=== PATIENT | female | born 1980 | race Two or more races ===

== ENCOUNTER 2021-05-21 12:10 | Outpatient (REF) | payer OTHER, SELFPAY ==
[2021-05-21 15:52] LABS: Binax Internal Control QC Valid; Binax Lot number: 9864; Binax Now Covid-19 Ag Negative (Negative)
== END 2021-05-21 12:11 | disposition home or self-care (01) ==
LOC: HO.LAB 12:10
PROVIDERS: Visit Provider Internal Medicine
DX: Z20.822 Contact with and (suspected) exposure to COVID-19 (principal)
CPT/HCPCS: 36415

== ENCOUNTER 2022-02-13 18:54 | Observation (INO) | payer OTHER, SELFPAY ==
--- NOTE | ~2022-02-13 | CT_ITS ---
EXAMINATION: CT ABDOMEN AND PELVIS WITH CONTRAST CLINICAL INFORMATION: Abdominal pain. Concern for appendicitis. COMPARISON: None TECHNIQUE: Multidetector volumetric images were obtained from the superior aspect of the liver through the pubic symphysis following administration 85 mL of Omnipaque 350 intravenous contrast. Sagittal and coronal reformatted images were obtained on the technologist's workstation. Oral contrast: No This CT examination was performed using dose optimization techniques as appropriate, variously including the following: *Automated exposure control *Adjustment of mA and/or kV according to patient size (this includes techniques or standardized protocols for targeted exams where dose is matched to indication/reason for exam; i.e. extremities or head) *Use of iterative reconstruction technique DLP: 634 mGy-cm FINDINGS: LUNG BASES: The visualized lung bases are unremarkable. LIVER, GALLBLADDER, AND BILIARY TREE: The liver is normal in size, shape, and attenuation. No focal hepatic lesion or biliary ductal dilatation is present. The gallbladder is unremarkable with no evidence of radiopaque gallstones, gallbladder wall thickening, or obvious pericholecystic inflammatory changes. PANCREAS: Unremarkable. SPLEEN: Unremarkable. ADRENAL GLANDS: Unremarkable. KIDNEYS AND URETERS: The kidneys are normal in size, shape, and attenuation. No hydronephrosis, hydroureter, or calculi seen. No perinephric stranding. BLADDER: Unremarkable. GASTROINTESTINAL TRACT: The appendix is normal in caliber measuring 7 mm. There is however subtle edema adjacent to the appendix in the right lower quadrant mesentery. Findings nonspecific but a mild appendicitis cannot be excluded. No abscess. Large bowel and small bowel loops in the stomach are normal. ABDOMINAL WALL: No significant hernia is appreciated. LYMPH NODES: Normal. VASCULAR: Unremarkable. PELVIC VISCERA: Uterus is anteverted. 1.3 cm enhancing myometrial nodule anterior uterus consistent with a small fibroid. No adnexal abnormality. OSSEOUS STRUCTURES: Disc phenomenon L4-L5 disc height narrowing. CT/CT abdomen pelvis w IV con IMPRESSION: The appendix is 7 mm in thickness with subtle edema noted. Appendiceal fat. Findings equivocal for appendicitis. Fleischner guidelines were followed.
[2022-02-13 18:56] VITALS: BP 142/98; PULSE 92; RESP 18; TEMP 36.8; O2SAT 97; BMI 32.9
[2022-02-13 20:27] LABS: MANUAL DIFF FLAG NO
[2022-02-13 20:28] LABS: Basophils Absolute Auto 0.1 X10*3/uL (0.0-0.2); Basophils Percent Auto 1.3 % (0-2); Eosinophils Absolute Auto 0.4 X10*3/uL (0.0-0.4); Eosinophils Percent Auto 4.1 % (0-4); Hematocrit 36.7 % (37.0-47.0); Hemoglobin 11.3 g/dl (12.0-16.0); Imm Gran Abs Auto 0.02 X10*3/uL (0.00-0.03); Imm Gran Pct Auto 0.2 % (0.0-0.4); Lymphocytes Absolute Auto 2.9 X10*3/uL (1.2-4.9); Lymphocytes Percent Auto 30.3 % (20-40); Mean Corpuscular HGB Conc 30.8 g/dl (31.0-35.0); Mean Corpuscular Hemoglobin 25.8 pg (27.0-33.0); Mean Corpuscular Volume 83.8 fL (80.0-98.0); Mean Platelet Volume 9.9 fL (9.4-12.3); Monocytes Absolute Auto 0.6 X10*3/uL (0.1-1.2); Monocytes Percent Auto 5.9 % (2-11); Neutrophils Absolute Auto 5.6 x10*3/uL (2.0-8.3); Neutrophils Percent Auto 58.2 % (45-73); Platelet Count 414 X10*3/uL (160-400); Red Blood Count 4.38 X10*6/uL (4.20-5.50); Red Cell Distribution Width 14.9 % (11.0-16.0); White Blood Count 9.6 X10*3/uL (4.8-10.8)
[2022-02-13 20:47] LABS: Alanine Aminotransferase 15 U/L (0-31); Albumin Level 4.6 g/dL (3.5-5.0); Alkaline Phosphatase 119 U/L (39-117); Anion Gap 16 (12-20); Aspartate Amino Transferase 16 U/L (5-31); Bilirubin Direct < 0.2 mg/dL (0.0-0.5); Bilirubin Total 0.2 mg/dL (0.0-1.0); Blood Urea Nitrogen 12 mg/dL (9-16); Carbon Dioxide 22 mmol/L (22-29); Chloride 105 mmol/L (96-108); Creatinine Clr Calc Pharmacy 96.7; Estimated Glomerular Filt Rate > 60; Glucose Random 95 mg/dL (60-115); Lipase 35 U/L (8-78); Potassium 4.1 mmol/L (3.3-5.1); Sodium 139 mmol/L (135-145); Total Protein 7.9 g/dL (6.5-8.0)
[2022-02-13 20:50] LABS: HCG Quantitative < 2 mIU/mL
--- NOTE | 2022-02-13 22:17 | ED_ITS ---
HPI - Abdominal Pain General Chief Complaint: Abdominal Pain Stated Complaint: appendix pain Time Seen by Provider: 02/13/22 19:25 Source: patient Mode of arrival: ambulatory Limitations: no limitations History of Present Illness HPI narrative: patient comes to the emergency room complaining periumbilical, epigastric and right lower quadrant pain. Patient complaining of nausea vomiting and diarrhea. Patient states that she was seen at [facility] couple of days ago, she was told that she had appendicitis. Patient left against medical advice. Related Data Allergies Allergy/AdvReac Type Severity Reaction Status Date / Time No Known Allergies Allergy Verified 02/13/22 19:01 Review of Systems Review of Systems Constitutional : No Weight loss, No Fever, No Chills, No Night Sweats, No Fatigue, No Malaise ENT/Mouth : No Hearing loss, No Ear Pain, No Nasal Congestion, No Sinus Pain, No Hoarseness, No sore throat, No Rhinorrhea, No Swallowing Difficulty Eyes: No Eye Pain, No Swelling, No Redness, No Foreign Body, No Discharge, No Vision Changes Cardiovascular : No Chest Pain, No SOB, No Dyspnea on Exertion, No Orthopnea, No Edema, No Palpitations Respiratory : No Cough, No Sputum, No Wheezing, No Smoke Exposure, No Dyspnea Gastrointestinal : Complaining of nausea vomiting and diarrhea, and complaining of epigastric and right lower quadrant pain, states that she was diagnosed with appendicitis 2 days ago Genitourinary : no irregular bleeding, No Dysuria, No Urinary Frequency, No Hematuria, No Urinary Incontinence, No Urgency, No Flank Pain, No Urinary Flow Changes, No Hesitancy Musculoskeletal : No joint pain, No Myalgias, No Joint Swelling Skin : No Skin Lesions, No rash Neuro : No Weakness, No Numbness, No Paresthesias, No Loss of Consciousness, No Dizziness, No Headache Psych : No Anxiety/Panic, No Depression, No SI/HI/AH/VH, No Social Issues, Heme/Lymph: No Bruising, No Bleeding,No Lymphadenopathy Endocrine : No Polyuria, No Polydipsia, No Temperature Intolerance PMFSH Social History Social History Advance Directives: No Advance Directives Information Provided: Yes Physical Exam ED Vital Signs: Vital Signs - 24 hr 02/13/22 18:56 02/13/22 22:37 02/13/22 23:39 Temperature 98.3 F 98.5 F 98.4 F Pulse Rate 92 68 69 Respiratory Rate 18 16 16 Blood Pressure 142/98 H 135/79 144/90 H Pulse Oximetry 97 98 98 Oxygen Delivery Method Room Air Room Air Room Air BMI result Body Mass Index 32.9 Const Other: Appearance: Alert. Oriented X3. No acute distress. well-appearing Eyes: Pupils equal, round and reactive to light. ENT: Pharynx normal. Neck: Normal inspection. Neck supple. No lymph nodes noted. No crepitus CVS: Normal heart rate and rhythm. Pulses normal. Normal S1 and S2 Respiratory: No respiratory distress. Breath sounds normal. No Wheezing. No rales Abdomen: Soft , does not seem to be significantly tender, no rebound, no guar ding , no peritoneal signs Skin: Skin warm and dry. Normal skin color. Normal skin turgor. Extremities: No lower extremity edema. No Lacerations. No Rash Neuro: Oriented X 3. No motor deficit. No sensory deficit. Moving all extremities. No slurred speech. CN 2 through 12 grossly intact Psych: calm, cooperative, normal affect Course Course Course Narrative: on physical exam, patient does not seem to have appendicitis. abdominal physical exam seems fairly benign. Patient has not requested any pain medications. Patient is well-appearing and is hungry I requested records from [facility], labs show a normal white blood cell count. CT scan pending. We received records from [facility]. Patient was seen on February 11: Seems the patient has had intermittent abdominal pain in appendix issues for several months. According to [facility] records, with the review of the EMR she was seen 08/31/2021 diagnosed with acute appendicitis seen on CT scan. However during admission her pain had completely resolved and she was advised to continue antibiotics for 1 week and was discharged home with advice to follow up in the office . Per records since the patient did not follow-up with surgery. Today, white blood cell count within normal limits. I discussed the CT findings, labs and previous records from [facility] with Dr. Tang. At this time, recommendations are to keep patient NPO. Dr. Tang will evaluate the patient in the morning at 07:00. The patient will remain in the ED under physician observation which was started at 00:45 no antibiotics are needed at this time per Dr. Tang. The diagnosis of appendicitis is questionable. Patient seems to be feeling fairly well, walking around the ED, asking if she can eat. Discussed with the patient that she will stay NPO until tomorrow, agrees with plan. MDM - Abdominal Pain Lab Data Result diagrams: 02/13/22 20:23 02/13/22 20:23 Labs: Lab Results 02/13/22 02/13/22 Range/Units 20:23 20:23 WBC 9.6 (4.8-10.8) X10*3/uL RBC 4.38 (4.20-5.50) X10*6/uL Hgb 11.3 L (12.0-16.0) g/dl Hct 36.7 L (37.0-47.0) % MCV 83.8 (80.0-98.0) fL MCH 25.8 L (27.0-33.0) pg MCHC 30.8 L (31.0-35.0) g/dl RDW 14.9 (11.0-16.0) % Plt Count 414 H (160-400) X10*3/uL MPV 9.9 (9.4-12.3) fL Immature Gran % (Auto) 0.2 (0.0-0.4) % Neut % (Auto) 58.2 (45-73) % Lymph % (Auto) 30.3 (20-40) % [place] % (Auto) 5.9 (2-11) % Eos % (Auto) 4.1 H (0-4) % Baso % (Auto) 1.3 (0-2) % Lymph # (Auto) 2.9 (1.2-4.9) X10*3/uL [place] # (Auto) 0.6 (0.1-1.2) X10*3/uL Eos # (Auto) 0.4 (0.0-0.4) X10*3/uL Baso # (Auto) 0.1 (0.0-0.2) X10*3/uL Abs Immat Gran (auto) 0.02 (0.00-0.03) X10*3/uL Absolute Neuts (auto) 5.6 (2.0-8.3) x10*3/uL Absolute Nucleated RBC 0.000 (0.0-0.012) X10*3/uL Nucleated RBC % (auto) 0.0 (0.0-0.2) /100WBC Sodium 139 (135-145) mmol/L Potassium 4.1 (3.3-5.1) mmol/L Chloride 105 (96-108) mmol/L Carbon Dioxide 22 (22-29) mmol/L Anion Gap 16 (12-20) BUN 12 (9-16) mg/dL Creatinine 0.75 (0.5-1.4) mg/dL Estim Creat Clear Calc 96.7 Estimated GFR > 60 Random Glucose 95 (60-115) mg/dL Calcium 11.0 H (8.4-10.2) mg/dL Total Bilirubin 0.2 (0.0-1.0) mg/dL Direct Bilirubin < 0.2 (0.0-0.5) mg/dL AST 16 (5-31) U/L ALT 15 (0-31) U/L Alkaline Phosphatase 119 H (39-117) U/L Total Protein 7.9 (6.5-8.0) g/dL Albumin 4.6 (3.5-5.0) g/dL Lipase 35 (8-78) U/L Beta HCG, Quant < 2 mIU/mL Imaging Data CT scan - abdomen: Radiologist's impression: FINDINGS: LUNG BASES: The visualized lung bases are unremarkable.? LIVER, GALLBLADDER, AND BILIARY TREE: The liver is normal in size, shape, and attenuation. No focal hepatic lesion or biliary ductal dilatation is present. The gallbladder is unremarkable with no evidence of radiopaque gallstones, gallbladder wall thickening, or obvious pericholecystic inflammatory changes.? PANCREAS: Unremarkable.? SPLEEN: Unremarkable.? ADRENAL GLANDS: Unremarkable.? KIDNEYS AND URETERS: The kidneys are normal in size, shape, and attenuation. No hydronephrosis, hydroureter, or calculi seen. No perinephric stranding. ? BLADDER: Unremarkable.? GASTROINTESTINAL TRACT: The appendix is normal in caliber measuring 7 mm. There is however subtle edema adjacent to the appendix in the right lower quadrant mesentery. Findings nonspecific but a mild appendicitis cannot be excluded. No abscess. Large bowel and small bowel loops in the stomach are normal.? ABDOMINAL WALL: No significant hernia is appreciated.? LYMPH NODES: Normal. VASCULAR: Unremarkable. PELVIC VISCERA: Uterus is anteverted. 1.3 cm enhancing myometrial nodule anterior uterus consistent with a small fibroid. No adnexal abnormality. OSSEOUS STRUCTURES: Disc phenomenon L4-L5 disc height narrowing.? CT/CT abdomen pelvis w IV con IMPRESSION: The appendix is 7 mm in thickness with subtle edema noted. Appendiceal fat. Findings equivocal for appendicitis. ? Fleischner guidelines were followed. Critical Care Time Critical Care Time Critical Care Time: Yes Total Critical Care Time: 30 Attestation: I have personally provided critical care time. Time includes review of lab data, radiology results, discussion with consultants, and monitoring for potential decompensation. Intervention performed as documented. Discharge Plan Discharge Clinical Impression: Acute appendicitis Patient Disposition: Still a Patient
[2022-02-13 22:37] VITALS: BP 135/79; PULSE 68; RESP 16; TEMP 36.9; O2SAT 98
[2022-02-13] MEDS: iohexoL 350 MG/ML 100 ML INFUS..BTL IV (23:03)
[2022-02-13 23:39] VITALS: BP 144/90; PULSE 69; RESP 16; TEMP 36.9; O2SAT 98
--- NOTE | 2022-02-14 00:48 | PC.NURSE ---
RN to bedside to provide pt with updates regarding NPO status and request for food. Pt aware of recent CT imaging and results that would require staff to follow up with surgery. RN provided education to the pt regarding her diagnosis and next steps. Pt verbalized understanding and is aware of plan for NPO status as of Midnight pending surgery consult. Pt reports continued pain to the RLQ 4/10 without N/V noted. Pt remains awake, alert, skin pwd, respirations even and unlabored without distress noted. The pt has call hill in reach and RN will continue to monitor.
[2022-02-14 01:41] VITALS: BP 124/72; PULSE 68; RESP 16; TEMP 37; O2SAT 98
--- NOTE | 2022-02-14 07:21 | P.PNGS_ITS ---
Subjective Subjective Date of Service: 02/19/22 Interval history: 41-year-old female who came to the ER because of right lower quadrant pain. A CT scan which some mild changes in the pending suggestive of acute appendicitis. She was actually in [facility] last February 11 for a si milar problem of right lower quadrant pain. She had signed out AMA at that time. The CAT scan showed findings also tip of early appendicitis . She had another CT scan last August for similar right lower quadrant pain in again this had tested acute appendicitis well. She seems to have had this low intensity pain on and off since that time. She denies any fever or chills. She does not have leukocytosis. Physical Exam Vital Signs: Vital Signs: Last Vital Signs Temp 98.6 F 02/14/22 01:41 Pulse 68 02/14/22 01:41 Resp 16 02/14/22 01:41 BP 124/72 02/14/22 01:41 Pulse Ox 98 02/14/22 01:41 O2 Del Method 02/14/22 01:41 BMI result Body Mass Index 32.9 Const: General: comfortable and no acute distress Orientation/con sciousness: patient oriented x3 Neck: Neck: Yes no lymphadenopathy Resp: Auscultation: clear to auscultation bilaterally Cardio: Rhythm: regular rhythm GI: Other: Very mild lower quadrant tenderness on deep palpation no guarding or rebound Palpation (GI): Soft to palpation, nontender and no guarding Neuro: General: patient oriented x3 Objective Data Active Medications Pharmacy Consult (Consult Rx Perform Med Rec) 1 each MISCELLANE ONCE PRN PRN Reason: Consult order Labs CBC & Chem 7: 02/13/22 20:23 02/13/22 20:23 Labs: Laboratory Results - last 24 hr 02/13/22 02/13/22 20:23 20:23 MCV 83.8 MCH 25.8 L MCHC 30.8 L RDW 14.9 Plt Count 414 H MPV 9.9 Immature Gran % (Auto) 0.2 Neut % (Auto) 58.2 Lymph % (Auto) 30.3 [place] % (Auto) 5.9 Eos % (Auto) 4.1 H Baso % (Auto) 1.3 Lymph # (Auto) 2.9 [place] # (Auto) 0.6 Eos # (Auto) 0.4 Baso # (Auto) 0.1 Abs Immat Gran (auto) 0.02 Absolute Neuts (auto) 5.6 Absolute Nucleated RBC 0.000 Nucleated RBC % (auto) 0.0 Anion Gap 16 Estim Creat Clear Calc 96.7 Estimated GFR > 60 Random Glucose 95 Calcium 11.0 H Total Bilirubin 0.2 Direct Bilirubin < 0.2 AST 16 ALT 15 Alkaline Phosphatase 119 H Total Protein 7.9 Albumin 4.6 Lipase 35 Beta HCG, Quant < 2 ABG Interpretation: Laboratory Results WBC 9.6 X10*3/uL (4.8-10.8) 02/13/22 20: RBC 4.38 X10*6/uL (4.20-5.50) 02/13/22 20: Hgb 11.3 g/dl (12.0-16.0) L 02/13/22 20: Hct 36.7 % (37.0-47.0) L 02/13/22 20: MCV 83.8 fL (80.0-98.0) 02/13/22 20: MCH 25.8 pg (27.0-33.0) L 02/13/22 20: MCHC 30.8 g/dl (31.0-35.0) L 02/13/22 20: RDW 14.9 % (11.0-16.0) 02/13/22 20: Plt Count 414 X10*3/uL (160-400) H 02/13/22 20:23 MPV 9.9 fL (9.4-12.3) 02/13/22 20: Immature Gran % (Auto) 0.2 % (0.0-0.4) 02/13/22 20: Neut % (Auto) 58.2 % (45-73) 02/13/22 20:23 Lymph % (Auto) 30.3 % (20-40) 02/13/22 20: [place] % (Auto) 5.9 % (2-11) 02/13/22 20:23 Eos % (Auto) 4.1 % (0-4) H 02/13/22 20:23 Baso % (Auto) 1.3 % (0-2) 02/13/22 20: Lymph # (Auto) 2.9 X10*3/uL (1.2-4.9) 02/13/22 20:23 [place] # (Auto) 0.6 X10*3/uL (0.1-1.2) 02/13/22 20: Eos # (Auto) 0.4 X10*3/uL (0.0-0.4) 02/13/22 20: Baso # (Auto) 0.1 X10*3/uL (0.0-0.2) 02/13/22 20: Abs Immat Gran (auto) 0.02 X10*3/uL (0.00-0.03) 02/13/22 20: Absolute Neuts (auto) 5.6 x10*3/uL (2.0-8.3) 02/13/22 20: Absolute Nucleated RBC 0.000 X10*3/uL (0.0-0.012) 02/13/22 20: Nucleated RBC % (auto) 0.0 /100WBC (0.0-0.2) 02/13/22 20: Sodium 139 mmol/L (135-145) 02/13/22 20: Potassium 4.1 mmol/L (3.3-5.1) 02/13/22 20: Chloride 105 mmol/L (96-108) 02/13/22 20: Carbon Dioxide 22 mmol/L (22-29) 02/13/22 20:23 Anion Gap 16 (12-20) 02/13/22 20:23 BUN 12 mg/dL (9-16) 02/13/22 20: Creatinine 0.75 mg/dL (0.5-1.4) 02/13/22 20:23 Estim Creat Clear Calc 96.7 02/13/22 20:23 Estimated GFR > 60 02/13/22 20:23 Random Glucose 95 mg/dL (60-115) 02/13/22 20: Calcium 11.0 mg/dL (8.4-10.2) H 02/13/22 20:23 Total Bilirubin 0.2 mg/dL (0.0-1.0) 02/13/22 20: Direct Bilirubin < 0.2 mg/dL (0.0-0.5) 02/13/22 20: AST 16 U/L (5-31) 02/13/22 20:23 ALT 15 U/L (0-31) 02/13/22 20:23 Alkaline Phosphatase 119 U/L (39-117) H 02/13/22 20:23 Total Protein 7.9 g/dL (6.5-8.0) 02/13/22 20:23 Albumin 4.6 g/dL (3.5-5.0) 02/13/22 20:23 Lipase 35 U/L (8-78) 02/13/22 20:23 Beta HCG, Quant < 2 mIU/mL 02/13/22 20:23 Impressions Abdomen/Pelvis CT 02/13/22 23:08 IMPRESSION: The appendix is 7 mm in thickness with subtle edema noted. Appendiceal fat. Findings equivocal for appendicitis. Fleischner guidelines were followed. Progress Note: A&P Assessment and plan (1) Right lower quadrant pain: Status: Acute Assessment and Plan: Her pain is actually more chronic and intermittent. Her CAT scan findings on the appendix are similar to her previous CAT scan Images. She does not have any leukocytosis. Overall clinical picture does not seem to be consistent with acute appendicitis. However, he has had right lower quadrant pain on and off with what appears to be persistent changes in the pending spared I therefore offered her he option of proceeding with laparoscopic appendectomy. I did explain to her that there is always a chance of conversion to open. I reviewed the risks including but not limited to bleeding, infections, to other organs in cluding the bowel and the urinary tract, as well as benefits and alternatives. I also spend to her that diagnosis is uncertain at this time. She does not want to yet with surgical intervention. I will admit her for continued observation. Time Spent With Patient Time: Total time spent is greater than 50% in coordination of care (as documented) at patient's floor/unit and/or counseling patient: Quality VTE VTE Risk Level:: Medical - moderate - high VTE Device Contraindication: N/A - Device Ordered VTE Drug Contraindication: N/A - Med Ordered
[2022-02-14 07:28] VITALS: BP 127/80; PULSE 61; RESP 16; O2SAT 96
[2022-02-14] MEDS: 0.9 % Sodium Chloride 1,000 ML 100 ML IVCONT (07:35)
[2022-02-14 07:51] LABS: COVID-19 Test Negative (Negative); IDNOW Serial# 9DB6401D
--- NOTE | 2022-02-14 08:58 | PHA.MEDREC ---
Pharmacy Consult ? Medication Reconciliation Pharmacy has completed the medication reconciliation.
--- NOTE | 2022-02-14 09:02 | PC.NURSE ---
DR YE IN TO SEE PT. CLEAR LIQUIDS GIVEN
[2022-02-14] MEDS: Amoxicillin/Potassium Clav 875 MG TABLET PO (10:23)
[2022-02-14 10:57] VITALS: BP 148/90; PULSE 65; RESP 18; TEMP 36.2; O2SAT 99
[2022-02-14 14:56] LABS: Appearance Urine Cloudy; Color Urine Yellow; Glucose Urine UA Negative (Negative); Leukocyte Esterase Urine Trace (Negative); Nitrite Urine Negative (Negative); Specific Gravity - Urine >= 1.030 (1.005-1.025); UMIC TRIGGER UACC YES; Urine Blood Large (3+) (Negative); Urine Ketones Trace mg/dL (Negative); Urine Protein Trace mg/dL (Neg-Trace)
[2022-02-14 15:00] LABS: UPreg QC Valid YES; Urine Pregnancy NEGATIVE (NEGATIVE)
[2022-02-14 15:13] LABS: Bacteria Urine None Seen (None Seen); Calcium Oxalate Crystals Urine Present; RBC Urine >20 /HPF (0-2); WBC Urine 0-5 /HPF (0-5)
--- NOTE | 2022-02-14 15:51 | PM.EVENT ---
Event Note Date of Service: 02/14/22 Event Note: pt seen multiple times today she had decided to not have surgery insistent on going home stated multiple times she did not have pain any anymore no fever abd remained soft denied tenderness I had multiple discussions with her and daughter - RLQ seems recurrent, she may have worsening of symptoms, peritonitis if this happens she understands but stated she will go home prescribed Augmentin she says she will see me in office She appeared competent seemed to understand entire situation including consequences
--- NOTE | 2022-02-14 15:55 | PM.HPGS ---
History of Present Illness History of Present Illness Date of Service: 02/19/22 Chief complaint: Right lower quadrant pain Narrative: Teresa Jiang is a 41 year old female who came to the ER because of right lower quadrant pain.? A CT scan showed some mild changes suggestive of? acute appendicitis.? She was actually in [facility] last February 11 for a similar problem of right lower quadrant pain.? She had signed out AMA at that time.? The CAT scan showed findings also suggestive of early appendicitis .? She had?a similar episode last August 2021 for? right lower quadrant pain and had a CAT scan done at that time which was suggestive of early acute appendicitis as well. She seems to have had this? low intensity pain on and off since that time.? She denies any fever or chills.? She? does not have leukocytosis. She denies any vomiting. She does state that feels better when seen in the ER. She actually had been asking to have some food. Review of Systems Constitutional: Constitutional: Denies chills and Denies fever(s) Cardiovascular: Cardiovascular: Denies chest pain, Denies dyspnea and Denies dyspnea on exertion Respiratory: Respiratory: Denies cough, Denies dyspnea and Denies dyspnea on exertion Gastrointestinal: Gastrointestinal: Denies hematochezia and Denies change in bowel habits Genitourinary: Genitourinary: Denies hematuria Musculoskeletal: Musculoskeletal: Denies back pain and Denies limited range of motion Neurologic: Denies focal weakness and Denies convulsions Psychiatric: Psychiatric: Denies depression and Denies mood swings PMF Past Medical History Medical History Right lower quadrant pain Social History Social History Advance Directives: No Advance Directives Information Provided: Yes Meds Allergies Allergy/AdvReac Type Severity Reaction Status Date / Time No Known Allergies Allergy Verified 02/13/22 19:01 Physical Exam Vital Signs: Vital Signs: Last Vital Signs Temp 97.2 F 02/14/22 10:57 Pulse 65 02/14/22 10:57 Resp 18 02/14/22 10:57 BP 148/90 H 02/14/22 10:57 Pulse Ox 99 02/14/22 10:57 O2 Del Method 02/14/22 10:57 BMI result Body Mass Index 32.9 Const: General: comfortable and no acute distress Orientation/consciousness: patient oriented x3 Neck: Neck: Yes no lymphadenopathy Resp: Auscultation: clear to auscultation bilaterally Cardio: Rhythm: regular rhythm GI: Other: Mild right lower quadrant tenderness to very deep palpation Palpation (GI): Soft to palpation, nontender and no guarding Neuro: General: patient oriented x3 Results Results Labs: Short CBC 02/13/22 Range/Units 20:23 WBC 9.6 (4.8-10.8) X10*3/uL Hgb 11.3 L (12.0-16.0) g/dl Hct 36.7 L (37.0-47.0) % Plt Count 414 H (160-400) X10*3/uL BMP 02/13/22 20:23 Sodium 139 Potassium 4.1 Chloride 105 Carbon Dioxide 22 BUN 12 Creatinine 0.75 Calcium 11.0 H Liver Function 02/13/22 Range/Units 20:23 Total Bilirubin 0.2 (0.0-1.0) mg/dL Direct Bilirubin < 0.2 (0.0-0.5) mg/dL AST 16 (5-31) U/L ALT 15 (0-31) U/L Alkaline Phosphatase 119 H (39-117) U/L Albumin 4.6 (3.5-5.0) g/dL Urine 02/14/22 02/14/22 Range/Units 11:26 11:26 Urine Color Yellow Urine Appearance Cloudy Urine pH 6.0 (5.0-9.0) Ur Specific [place] >= 1.030 H (1.005-1.025) Urine Protein Trace (Neg-Trace) mg/dL Urine Glucose (UA) Negative (Negative) mg/dL Urine Test NEGATIVE (NEGATIVE) Additional studies: Laboratory Results WBC 9.6 X10*3/uL (4.8-10.8) 02/13/22 20: RBC 4.38 X10*6/uL (4.20-5.50) 02/13/22 20:23 Hgb 11.3 g/dl (12.0-16.0) L 02/13/22 20:23 Hct 36.7 % (37.0-47.0) L 02/13/22 20:23 MCV 83.8 fL (80.0-98.0) 02/13/22 20: MCH 25.8 pg (27.0-33.0) L 02/13/22 20: MCHC 30.8 g/dl (31.0-35.0) L 02/13/22 20: RDW 14.9 % (11.0-16.0) 02/13/22 20: Plt Count 414 X10*3/uL (160-400) H 02/13/22 20: MPV 9.9 fL (9.4-12.3) 02/13/22 20: Immature Gran % (Auto) 0.2 % (0.0-0.4) 02/13/22: Neut % (Auto) 58.2 % (45-73) 02/13/22: Lymph % (Auto) 30.3 % (20-40) 02/13/22 20: [place] % (Auto) 5.9 % (2-11) 02/13/22: Eos % (Auto) 4.1 % (0-4) H 02/13/22 20: Baso % (Auto) 1.3 % (0-2) 02/13/22: Lymph # (Auto) 2.9 X10*3/uL (1.2-4.9) 02/13/22: [place] # (Auto) 0.6 X10*3/uL (0.1-1.2) 02/13/22: Eos # (Auto) 0.4 X10*3/uL (0.0-0.4) 02/13/22 20: Baso # (Auto) 0.1 X10*3/uL (0.0-0.2) 02/13/22: Abs Immat Gran (auto) 0.02 X10*3/uL (0.00-0.03) 02/13/22: Absolute Neuts (auto) 5.6 x10*3/uL (2.0-8.3) 02/13/22: Absolute Nucleated RBC 0.000 X10*3/uL (0.0-0.012) 02/13/22: Nucleated RBC % (auto) 0.0 /100WBC (0.0-0.2) 02/13/22 20:23 Sodium 139 mmol/L (135-145) 02/13/22 20:23 Potassium 4.1 mmol/L (3.3-5.1) 02/13/22 20:23 Chloride 105 mmol/L (96-108) 02/13/22 20:23 Carbon Dioxide 22 mmol/L (22-29) 02/13/22 20:23 Anion Gap 16 (12-20) 02/13/22 20:23 BUN 12 mg/dL (9-16) 02/13/22 20:23 Creatinine 0.75 mg/dL (0.5-1.4) 02/13/22 20:23 Estim Creat Clear Calc 96.7 02/13/22 20:23 Estimated GFR > 60 02/13/22 20:23 Random Glucose 95 mg/dL (60-115) 02/13/22 20: Calcium 11.0 mg/dL (8.4-10.2) H 02/13/22 20:23 Total Bilirubin 0.2 mg/dL (0.0-1.0) 02/13/22 20:23 Direct Bilirubin < 0.2 mg/dL (0.0-0.5) 02/13/22 20:23 AST 16 U/L (5-31) 02/13/22 20:23 ALT 15 U/L (0-31) 02/13/22 20:23 Alkaline Phosphatase 119 U/L (39-117) H 02/13/22 20:23 Total Protein 7.9 g/dL (6.5-8.0) 02/13/22 20:23 Albumin 4.6 g/dL (3.5-5.0) 02/13/22 20:23 Lipase 35 U/L (8-78) 02/13/22 20:23 Beta HCG, Quant < 2 mIU/mL 02/13/22 20:23 Urine Color Yellow 02/14/22 11:26 Urine Appearance Cloudy 02/14/22 11:26 Urine pH 6.0 (5.0-9.0) 02/14/22 11:26 Ur Specific [place] >= 1.030 (1.005-1.025) H 02/14/22 11:26 Urine Protein Trace mg/dL (Neg-Trace) 02/14/22 11:26 Urine Glucose (UA) Negative mg/dL (Negative) 02/14/22 11:26 Urine Ketones Trace mg/dL (Negative) 02/14/22 11:26 Urine Blood Large (3+) (Negative) H 02/14/22 11:26 Urine Nitrite Negative (Negative) 02/14/22 11:26 Ur Leukocyte Esterase Trace (Negative) H 02/14/22 11:26 Urine RBC >20 /HPF (0-2) H 02/14/22 11:26 Urine WBC 0-5 /HPF (0-5) 02/14/22 11:26 Ur Squamous Epith Cells 6-10 /HPF (0-2) 02/14/22 11:26 Calcium Oxalate Crystal Present 02/14/22 11:26 Urine Bacteria None Seen (None Seen) 02/14/22 11:26 Hyaline Casts 3-5 /LPF (0-2) 02/14/22 11:26 Urine Test NEGATIVE (NEGATIVE) 02/14/22 11:26 COVID-19 (HOLLY) Negative (Negative) 02/14/22 07:31 COVID-19 Clin Com See Note 02/14/22 07:31 Impressions Abdomen/Pelvis CT 02/13/22 23:08 IMPRESSION: The appendix is 7 mm in thickness with subtle edema noted. Appendiceal fat. Findings equivocal for appendicitis. Fleischner guidelines were followed. Assessment and Plan (1) Right lower quadrant pain: Status: Acute I have reviewed her CAT scan with the radiologist Dr. Echevarria and this does suggest early appendicitis. The patient however clinically very benign and is minimally tender if at all on the right lower quadrant. She does not have any leukocytosis. She looks well overall. I explained to her that in view of her recurrent symptom it may benefit her she had with appendectomy as her pain is on the right lower quadrant and the only significant finding on CT scan are the changes around her appendix. She was hesitant to proceed with surgery. She says that she feels much better and was thinking of being discharged. I told her that I will see her again in the ER for a follow out exam we can rediscuss her options. Quality Stroke Does the patient have a stroke diagnosis?: No VTE Prior VTE?: No VTE Risk Level:: Medical - moderate - high VTE Device Contraindication: N/A - Device Ordered VTE Drug Contraindication: N/A - Med Ordered Procedures Date of Service Date of Service: 02/14/22
--- NOTE | 2022-02-18 09:34 | PM.DS ---
DS: Providers Provider Date of Service: 02/14/22 Date of admission: 02/14/22 07:19 Primary care physician: Lino Miller MD Attending physician on admission: Yoni Tang Attending physician on discharge: Yoni Tang DS: Diagnosis Discharge Diagnosis (1) Right lower quadrant pain: Status: Acute DS: Summary Hospital Course Hospital Course: BRIEF HPI: Teresa Jiang is a 41 year old female who came to the ER because of right lower quadrant pain.? A CT scan showed some mild changes? suggestive of? acute appendicitis.? She was actually in [facility] last February 11 for a similar problem of right lower quadrant pain.? She had signed out AMA at that time.? The CAT scan showed findings also suggestive of early appendicitis .? She had?a similar episode last August 2021 for?? right lower quadrant pain and had a CAT scan done at that time which was suggestive of early acute appendicitis as well. She seems to have had this? low intensity pain on and off since that time.? She denies any fever or chills.? She?does not have leukocytosis.? She denies any vomiting. HOSPITAL COURSE: The patient was admitted to the surgical service for further treatment of the RLQ abd pain. She actually felt improved. Treatment options were discussed with her including observation or proceeding with laparoscopic possible open appendectomy given the peristent changes in the appendix. She was reexamined multiple times during the day and she had decided to not have surgery and was insistent on going home. It was discussed with her that the RLQ seems recurrent, and that she may have worsening of symptoms, peritonitis if this happens. She understood but stated she still wanted to go home. She was sent with a course of Amoxicillin and instructed to follow up with Dr. Tang in the office. She was discharged to home on 02/14/22 in stable condition. Status at Discharge Functional status at discharge: independent ambulation Overall status at discharge: patient is progressing back to baseline Time Spent with Patient Time attestation: Total time spent providing and/or coordinating discharge services: Discharge coordination time: Less than 30 minutes Quality: Safe Use of Opioids Does Pt have an Active Cancer Diagnosis on the Problem List?: No Quality: Stroke Does the patient have a stroke diagnosis?: No Physical Exam Vital Signs: Vital Signs: Last Vital Signs Temp 97.2 F 02/14/22 10:57 Pulse 65 02/14/22 10:57 Resp 18 02/14/22 10:57 BP 148/90 H 02/14/22 10:57 Pulse Ox 99 02/14/22 10:57 O2 Del Method 02/14/22 10:57 BMI result Body Mass Index 32.9 Const: General: comfortable, no acute distress and well developed Orientation/consciousness: patient oriented x3 Resp: Effort & Inspection: normal respiratory effort GI: Inspection: No distended Palpation (GI): Soft to palpation, nontender, no guarding and not rigid Skin: General skin exam: no rashes or lesions noted Neuro: General: patient oriented x3 Discharge Plan Discharge Patient Disposition: Home, Self-Care Discharge Diagnosis: right lower quadrant pain, recurrent Referrals: Lino Miller MD [Primary Care Provider] - 1 Week Yoni Tang MD [Physician] - 1 Week Discharge Medications: New amoxicillin 875 mg tablet 875 mg PO BID Qty: 14 0RF Discharge Orders: Discharge Order (Routine); Ordered 02/14/22 Ordered By: Yoni Tang Diet: Advance to usual diet Activity on Discharge: As tolerated Stand Alone Forms: Patient Portal Discharge page Care Plan Goals: control episodes of right lower quadrant pain Health Concerns: right lower quadrant pain Plan of Treatment: oral antibiotics Assessment: pain has resolved Discharge Date/Time: 02/14/22 15:35
== END 2022-02-14 15:35 | disposition home or self-care (01) ==
LOC: HO.ED 02-14 07:13 → HO.EDOVER 02-14 10:42
PROVIDERS: Emergency Medicine; Student in an Organized Health Care Education/Training Program; Admitting Provider Surgery; Emergency Provider Emergency Medicine; PCP Internal Medicine; Visit Provider Surgery
DX: R10.31 Right lower quadrant pain (principal); Z20.822 Contact with and (suspected) exposure to COVID-19; Z79.899 Other long term (current) drug therapy
CPT/HCPCS: 36415; 74177; 80048; 80076; 81001; 81025; 83690; 84702; 85025; 87635; 96360; 96361; 99218; 99284; Q9967

== ENCOUNTER 2022-03-20 09:28 | Emergency (ER) | payer OTHER, SELFPAY ==
[2022-03-20 10:13] VITALS: BP 189/84; PULSE 72; RESP 18; TEMP 36.4; O2SAT 99; BMI 32.9
[2022-03-20 10:24] LABS: MANUAL DIFF FLAG NO
[2022-03-20 10:26] LABS: Basophils Absolute Auto 0.1 X10*3/uL (0.0-0.2); Basophils Percent Auto 0.7 % (0-2); Eosinophils Absolute Auto 0.2 X10*3/uL (0.0-0.4); Eosinophils Percent Auto 1.2 % (0-4); Hematocrit 36.2 % (37.0-47.0); Hemoglobin 10.9 g/dl (12.0-16.0); Imm Gran Abs Auto 0.06 X10*3/uL (0.00-0.03); Imm Gran Pct Auto 0.3 % (0.0-0.4); Lymphocytes Percent Auto 11.1 % (20-40); Mean Corpuscular HGB Conc 30.1 g/dl (31.0-35.0); Mean Corpuscular Volume 86.4 fL (80.0-98.0); Mean Platelet Volume 9.9 fL (9.4-12.3); Monocytes Absolute Auto 0.8 X10*3/uL (0.1-1.2); Monocytes Percent Auto 4.3 % (2-11); Neutrophils Absolute Auto 14.6 x10*3/uL (2.0-8.3); Neutrophils Percent Auto 82.4 % (45-73); Platelet Count 394 X10*3/uL (160-400); Red Blood Count 4.19 X10*6/uL (4.20-5.50); White Blood Count 17.7 X10*3/uL (4.8-10.8)
[2022-03-20 10:44] LABS: Anion Gap 18 (12-20); Blood Urea Nitrogen 7 mg/dL (9-16); Calcium 9.9 mg/dL (8.4-10.2); Carbon Dioxide 17 mmol/L (22-29); Chloride 108 mmol/L (96-108); Creatinine Clr Calc Pharmacy 95.5; Estimated Glomerular Filt Rate > 60; Glucose Random 107 mg/dL (60-115); Potassium 4.5 mmol/L (3.3-5.1); Sodium 138 mmol/L (135-145)
== END 2022-03-20 14:48 | disposition left against medical advice (07) ==
PROVIDERS: Emergency Provider Emergency Medicine; PCP Internal Medicine
DX: R10.9 Unspecified abdominal pain (principal); R19.7 Diarrhea, unspecified; R11.10 Vomiting, unspecified
CPT/HCPCS: 36415; 80048; 85025; 99281; 99283